=== PATIENT | female | born 1990 | race Caucasian/White ===

== ENCOUNTER → 2017-05-05 | Outpatient (CLI) | payer SELFPAY ==
--- NOTE | 2017-05-05 15:20 | RADIOLOGY REPORT (SQ) ---
EXAM DESCRIPTION: U/S [id number] TRNABD 1GES W/ODOP COMPLETED DATE/TIME: 05/05/2017 1:47 pm REASON FOR STUDY: ENCOUNTER FOR SUPERVISION OF OTHER NORMAL (Z34.81) Z34.81 ENCOUNTER FOR SUPRVSN OF NORMAL , FIRST TRIM COMPARISON: None. TECHNIQUE: Transabdominal static and realtime grayscale images acquired of the pelvis. Additional se lected spectral and color Doppler images recorded. All images stored on PACs. bHCG: Not available. LIMITATIONS: Ovaries and adnexa not well seen due to pelvic bowel gas FINDINGS: FETUS: Living intrauterine . EGA: 7 weeks 0 days by crown-rump length BRANDI: 12/22/2017 FHR: 152 beats per minute. SUBCHORIONIC BLEED: No SIZE OF BLEED: Not applicable. UTERUS: No masses. No anomalies. Uterus is 10.4 x 5.7 x 5.3 cm in size. CERVICAL LENGTH: 3.3 cm. Closed. RIGHT ADNEXA: Not visualized due to bowel gas LEFT ADNEXA: Not visualized due to bowel gas. FREE FLUID: None. OTHER: No other significant finding. IMPRESSION: LIVING INTRAUTERINE . EGA 7 weeks 0 days. Embryo cardiac activity 152 beats per minute Trimester of : First - 0 to 13 weeks. TECHNICAL DOCUMENTATION: JOB ID: [id number] [employer]- All Rights Reserved
== END ==
LOC: RAD 12:40
PROVIDERS: ATTEND Nurse Practitioner Women's Health
DX: Z34.81 Encounter for supervision of other normal pregnancy, first trimester (principal)
CPT/HCPCS: 76801